=== PATIENT | male | born 1950 | race Caucasian/White ===

== ENCOUNTER → 2024-08-04 17:22 | Outpatient (REF) | payer OTHER, SELFPAY | LOC: MRI 3T 17:22 | PROVIDERS: ATTENDING PHYSICIAN Urology; FAMILY PHYSICIAN Family Medicine | DX: R97.20 Elevated prostate specific antigen [PSA] (principal) | CPT/HCPCS: 72197; A9575 ==

== ENCOUNTER → 2024-09-04 13:01 | Outpatient (REF) | payer OTHER, SELFPAY | LOC: PET 13:01 | PROVIDERS: ATTENDING PHYSICIAN Urology | DX: C61 Malignant neoplasm of prostate (principal) | CPT/HCPCS: 78815; A9595 ==

== ENCOUNTER → 2024-10-30 15:52 | Outpatient (REF) | payer OTHER, SELFPAY | LOC: HWRCS 15:52 | PROVIDERS: ATTENDING PHYSICIAN Internal Medicine; FAMILY PHYSICIAN Family Medicine | DX: I48.21 Permanent atrial fibrillation (principal) | CPT/HCPCS: 93306 ==